=== PATIENT | female | born 1955 | race Caucasian/White ===

== ENCOUNTER 2021-12-06 06:05 | Emergency (ER) | payer MEDICARE, OTHER ==
[~2021-12-06] VITALS: Ht 162.6 cm; Wt 68.0 kg
[2021-12-06] MEDS ORDERED: Flovent 44 mc10.6 GM (06:40)
[2021-12-06] MEDS ORDERED: Serevent Disku50 MCG (06:40)
[2021-12-06] MEDS ORDERED: ESCI10 (06:41)
[2021-12-06] MEDS ORDERED: AMLO10 (06:41)
[2021-12-06] MEDS ORDERED: LISI20 (06:42)
[2021-12-06] MEDS ORDERED: PANT40 (06:42)
[2021-12-06 06:53] LABS: Source, Urine Clean Catch
[2021-12-06 06:59] LABS: Appearance, Urine Cloudy (Clear); Bilirubin, Urine Neg (Neg); Blood, Urine 4+ (Neg); Color, Urine Yellow (P-Yellow); Glucose Qualitative, Urine Neg (Neg); Ketones, Urine Neg (Neg); Leukocyte Esterase, Urine 1+ (Neg); Nitrite, Urine Pos (Neg); Protein, Urine 2+ (Neg); Urobilinogen, Urine NORM (Normal); pH, Urine 6.5 (5.0-8.0)
[2021-12-06 07:33] LABS: Bacteria Many /hpf; Red Blood Cells, Urine 25-50 /hpf (0-2); Squamous Epithelial Cells Few /hpf (Few)
[2021-12-06] MEDS ORDERED: CODACE30 PO (07:54)
[2021-12-06] MEDS ORDERED: CEFD300 PO (07:54)
== END 2021-12-06 08:31 | disposition home or self-care (01) ==
LOC: ER 06:05
PROVIDERS: Emergency Medicine
DX: N10 Acute pyelonephritis (principal); J45.909 Unspecified asthma, uncomplicated
CPT/HCPCS: 81001; 87077; 87086; 87186; 99283; A9270